=== PATIENT | male | born 1995 | race Two or more races ===

== ENCOUNTER 2024-05-11 07:11 | Inpatient (IN) | payer OTHER ==
[~2024-05-11] VITALS: Ht 177.8 cm; Wt 174.6 kg
[2024-05-11] MEDS: PIPERACILLIN/TAZO 3.375G/50ML 50 ML IV ONE (09:00)
[2024-05-11] MEDS: SODIUM CHLORIDE 0.9% (SEPSIS BOLUS) IV ONE (09:01)
[2024-05-11] MEDS: VANCOMYCIN 1G PREMIX 200 ML IV ONE (09:19)
[2024-05-11 09:38] LABS: MEAN CORPUSCULAR HEMOGLOBIN 34.7 pg (28.0-32.0); MEAN CORPUSCULAR HGB CONC 33.9 g/dL (31.0-37.0); MEAN CORPUSCULAR VOLUME 102.3 fL (80.0-94.0); PLATELET 251 x1000/uL (130-400); RED CELL DISTRIBUTION WIDTH 14.9 % (11.6-14.6); WHITE BLOOD COUNT 16.3 x1000/uL (4.5-11.0)
[2024-05-11 09:40] LABS: DIFFERENTIAL COMMENT 1
[2024-05-11 09:55] LABS: PROTHROMBIN TIME 11.4 sec (9.6-11.0)
[2024-05-11 09:56] LABS: CHLORIDE 104 mEq/L (98-107); POTASSIUM 3.6 mEq/L (3.5-5.1); SODIUM 138 mEq/L (136-145)
[2024-05-11 09:57] LABS: CALCIUM 9.5 mg/dL (8.7-10.4); CARBON DIOXIDE 18 mEq/L (21-32)
[2024-05-11 10:02] LABS: CREATININE 1.1 mg/dL (0.6-1.3); GLUCOSE 100 mg/dL (70-105); LACTIC ACID 2.8 mmol/L (0.4-2.0); UREA NITROGEN BLOOD 7 mg/dL (9-23)
[2024-05-11 10:04] LABS: ALANINE AMINOTRANSFERASE 210 IU/L (10-49); ALBUMIN 4.4 g/dL (3.2-4.8); ASPARTATE AMINOTRANSFERASE 234 IU/L (<34); BILIRUBIN DIRECT 0.4 mg/dL (<=3.0); BILIRUBIN TOTAL 0.8 mg/dL (0.1-1.0); PROTEIN TOTAL 7.4 g/dL (6.0-8.3)
[2024-05-11 10:28] LABS: TROPONIN I HIGH SENSITIVITY < 4 ng/L (3.0-53)
[2024-05-11 10:40] LABS: PLATELET ESTIMATE NORMAL
[2024-05-11 11:05] LABS: CLARITY URINE CLEAR (CLEAR); COLOR URINE YELLOW (YELLOW); GLUCOSE URINE NEGATIVE (NEGATIVE); KETONES URINE TRACE (NEGATIVE); LEUKOCYTE ESTERASE URINE NEGATIVE (NEGATIVE); NITRITE URINE NEGATIVE (NEGATIVE); OCCULT BLOOD URINE NEGATIVE (NEGATIVE); PH URINE 5.5 (4.5-8.0); PROTEIN URINE NEGATIVE (NEGATIVE); SPECIFIC GRAVITY URINE 1.011 (1.005-1.030); UROBILINOGEN URINE 0.2 E.U./dL (0.2-1.0)
[2024-05-11] MEDS ORDERED: CLONIDINE 0.1MG TABLET PO PRN (11:15)
[2024-05-11] MEDS ORDERED: LORAZEPAM 2MG/ML INJ IV PRN (11:15)
[2024-05-11] MEDS ORDERED: ACETAMINOPHEN 325MG TABLET PO PRN ×2 (11:15)
[2024-05-11] MEDS ORDERED: IPRATROPIUM/ALBUTEROL 0.5-3(2.5)MG/3ML NEB HHN PRN (11:15)
[2024-05-11] MEDS ORDERED: DOCUSATE SODIUM 100MG CAPSULE PO PRN (11:15)
[2024-05-11 12:59] LABS: IRON 87 ug/dL (65-175)
[2024-05-11] MEDS: MVI, ADULT NO.1 10 ML, FOLIC ACID 1 MG, THIAMINE HCL 100 MG in SODIUM CHLORIDE 0.9% 1,0... IV NR (13:00)
[2024-05-11] MEDS: SODIUM BICARBONATE 8.4% 50MEQ/50ML SYR IV NR (13:00)
[2024-05-11] MEDS: PANTOPRAZOLE SODIUM 40 MG/VIAL IV SCH (13:00)
[2024-05-11 13:02] LABS: PHOSPHORUS 2.2 mg/dL (2.5-4.9); TOTAL IRON BINDING CAPACITY 262 ug/dl (250-425)
[2024-05-11 13:07] LABS: ETHANOL BLOOD < 10 mg/dL (<10)
[2024-05-11] MEDS ORDERED: MAGNESIUM 4 G PREMIX 100 ML IV NR (14:30)
[2024-05-11] MEDS: POTASSIUM PHOSPHATE 30 MMOL in SODIUM CHLORIDE 0.9% 490 ML IV NR (16:16)
[2024-05-12] VITALS (7 sets, daily range): BP systolic 137–161; BP diastolic 87–103; PULSE 85–95; RESP 18–19; TEMP 36.28068–37.39188; O2SAT 98–100
[2024-05-12 06:28] LABS: BASOPHILS % 0.5 % (0.0-2.0); DIFFERENTIAL COMMENT 0; EOSINOPHILS % 3.1 % (0.0-5.0); HEMATOCRIT. 40.7 % (42.0-52.0); LYMPHOCYTES % 20.1 % (20.0-50.0); MEAN CORPUSCULAR HEMOGLOBIN 35.2 pg (28.0-32.0); MEAN CORPUSCULAR HGB CONC 34.3 g/dL (31.0-37.0); MEAN CORPUSCULAR VOLUME 102.5 fL (80.0-94.0); MEAN PLATELET VOLUME 8.3 fl (7.4-10.4); MONOCYTES % 10.6 % (2.0-8.0); NEUTROPHILS % 65.7 % (40.0-76.0); PLATELET 211 x1000/uL (130-400); RED BLOOD CELL COUNT 3.97 mill/uL (4.7-6.1); RED CELL DISTRIBUTION WIDTH 15.1 % (11.6-14.6); WHITE BLOOD COUNT 9.4 x1000/uL (4.5-11.0)
[2024-05-12 06:30] LABS: CHLORIDE 109 mEq/L (98-107); POTASSIUM 3.4 mEq/L (3.5-5.1); SODIUM 142 mEq/L (136-145)
[2024-05-12 06:31] LABS: CALCIUM 8.5 mg/dL (8.7-10.4); CARBON DIOXIDE 23 mEq/L (21-32)
[2024-05-12 06:33] LABS: TRIGLYCERIDE 81 mg/dL (0-150)
[2024-05-12 06:36] LABS: GLUCOSE 98 mg/dL (70-105); UREA NITROGEN BLOOD 8 mg/dL (9-23)
[2024-05-12 06:37] LABS: LDL CHOLESTEROL 51 mg/dL (5-100)
[2024-05-12 06:38] LABS: ALANINE AMINOTRANSFERASE 119 IU/L (10-49); ALBUMIN 3.6 g/dL (3.2-4.8); ASPARTATE AMINOTRANSFERASE 96 IU/L (<34); BILIRUBIN DIRECT 0.4 mg/dL (<=3.0); CHOLESTEROL 119 mg/dL (<200); HDL CHOLESTEROL 52 mg/dL (>55)
[2024-05-12 06:49] LABS: HEPATITIS B SURFACE ANTIGEN NEGATIVE (Negative)
[2024-05-12 07:10] LABS: HEPATITIS C AB NON REACTIVE (Neg) (Negative)
[2024-05-12] MEDS: FOLIC ACID 1MG TABLET PO SCH (10:28)
[2024-05-12] MEDS: THIAMINE HCL 100MG TABLET PO SCH (10:28)
[2024-05-12] MEDS: AMLODIPINE 5MG TABLET PO SCH (10:30)
[2024-05-12] MEDS: POTASSIUM CHLORIDE 20MEQ/PACKET PO NR (10:30)
[2024-05-12 11:59] LABS: *AMPHETAMINES SCREEN URINE NEGATIVE (NEGATIVE); *BARBITURATES SCREEN URINE NEGATIVE (NEGATIVE); *BENZODIAZEPINES SCREEN URINE NEGATIVE (NEGATIVE); *COCAINE SCREEN URINE NEGATIVE (NEGATIVE); METHADONE URINE SCREEN NEGATIVE (NEGATIVE); OPIATES URINE SCREEN NEGATIVE (NEGATIVE)
[2024-05-12 12:00] LABS: CANNABINOID URINE SCREEN NEGATIVE (NEGATIVE); ECSTASY MDMA SCREEN URINE NEGATIVE (NEGATIVE); PHENCYCLIDINE URINE SCREEN NEGATIVE (NEGATIVE)
[2024-05-12] MEDS: INFLUENZA VACCINE 05/PF 0.5 ML SYRINGE IM ONE (15:15)
[2024-05-12] MEDS: ONDANSETRON HCL 4MG/2ML INJ IV PRN (20:29)
[2024-05-13] VITALS: BP 139/88; PULSE 88; RESP 18; TEMP 36.6696; O2SAT 98
[2024-05-13 04:00] VITALS: BP 146/111; PULSE 78; RESP 18; TEMP 36.6696; O2SAT 95
[2024-05-13 08:00] VITALS: BP 148/104; PULSE 82; RESP 20; TEMP 35.72508; O2SAT 99
[2024-05-13 12:00] VITALS: BP 134/94; PULSE 98; RESP 20; TEMP 36.72516; O2SAT 99
[2024-05-13 16:00] VITALS: BP 157/86; PULSE 77; RESP 20; TEMP 36.9474; TEMP 36.94740; O2SAT 99
[2024-05-13 16:36] VITALS: BP 157/86; PULSE 77; TEMP 98.5; O2SAT 99
== END 2024-05-13 16:00 | disposition home or self-care (01) | DRG 872 ==
LOC: ER 07:11 → EDBEDREQTM 10:57 → EDBEDREQ 10:57 → 7EST 05-12 01:05 → 4WST 05-12 23:21
PROVIDERS: ADMIT Internal Medicine; ATTEND Internal Medicine
DX: A41.9 Sepsis, unspecified organism (principal); R65.20 Severe sepsis without septic shock; F10.10 Alcohol abuse, uncomplicated; Z20.822 Contact with and (suspected) exposure to COVID-19; I10 Essential (primary) hypertension; K52.9 Noninfective gastroenteritis and colitis, unspecified; K76.0 Fatty (change of) liver, not elsewhere classified; K29.20 Alcoholic gastritis without bleeding
CPT/HCPCS: 36415; 71045; 74176; 80048; 80061; 80076; 80305; 80320; 81003; 83540; 83550; 83605; 83735; 84100; 84145; 84484; 85025; 86705; 87340; 87426; 93005; 93970; 99291; J2405; J2470; J2543; J3370; J3411; J3475; J3490; J7030; J7040; G0480